=== PATIENT | male | born 1965 | race Caucasian/White ===

== ENCOUNTER 2017-08-28 19:08 | Emergency (ER) | payer OTHER, SELFPAY ==
[2017-08-28 19:09] VITALS: BP 116/75; PULSE 112; RESP 15; TEMP 37.2; BMI 29.8
--- NOTE | 2017-08-28 19:53 | RAD_ITS ---
STUDY: X-RAY CHEST REASON FOR EXAM: Male, 52 years old. Chest pain, fever TECHNIQUE: Single AP portable view of the chest. COMPARISON: None. FINDINGS: The lungs are clear and expanded. There is no demonstrated pleural abnormality. Normal size heart. Normal mediastinum and yelena. Normal visualized pulmonary arteries. Normal visualized aortic arch and descending thoracic aorta. Normal visualized thoracic spine. Normal visualized ribs, clavicles, and shoulders. There is no demonstrated abnormality of the visualized soft tissue structures of the upper abdomen. RAD/Chest 1 View (Portable) IMPRESSION: No acute cardiopulmonary disease. Electronically Signed: Suman Tyler DO at 20:19 EST , Service support ,
--- NOTE | 2017-08-28 19:53 | EKG12_ITS ---
Test Reason : CP Blood Pressure : / mmHG Vent. Rate : 098 BPM Atrial Rate : 098 BPM P-R Int : 160 ms QRS Dur : 112 ms QT Int : 334 ms P-R-T Axes : 070 066 054 degrees QTc Int : 426 ms Normal sinus rhythm Normal ECG Confirmed by TREVIN STANTON, CHARLES ([id number]), industrial editor MARINA FIGUEROA ([id number] on 08/30/2017 10:24:49 AM Referred By: CARLEEN NUR Confirmed By:CHARLES ZHONG MD
--- NOTE | 2017-08-28 19:59 | ED.DCSUM_ITS ---
- ER Visit Summary Date of Service: 08/28/17 Chief Complaint: Fever History of Present Illness: The patient is a 52 M presenting with fever ?2 days. He states his temperature max has been 103.7. he complains of shortness of breath and cough. He has myalgias. Also complains of substernal chest pain. He states the chest pain has been constant since 5 AM. He describes it as a diffuse body aching. Denies coronary artery disease risk factors. He has been taking Sudafed at home. He did not receive a flu shot this year. Physical Examination: Vitals are stable. Patient is afebrile. Alert no acute distress. HEENT exam is unremarkable. Neck is supple. Lungs are clear and equal bilaterally. Heart is regular rate and rhythm. Abdomen is soft nontender nondistended. Extremities are unremarkable. Skin is warm and dry. No focal neurologic deficit. Remainder of exam is unremarkable. Emergency Department Course and Treatment: Patient is given IV fluids, aspirin, Toradol. Chest x-ray shows no acute process. EKG is sinus rate of 98 with no acute ischemic changes. CBC, chemistries unremarkable. Troponin is negative. D-dimer is normal. Influenza A positive. Patient was ambulated in the ED and has pulse ox of 96% on room air. He is advised symptomatic treatment. Advised to follow-up with Dr. Carias communication arts lecturer for no doc. Advised return ED if worsening complaints. Disposition: Discharge home Impression: Influenza A This note was generated with Jumio dictation software. It may contain incorrect words, spelling, and punctuation that were not noted in review of the chart prior to signing ED Disposition - Plan for ED Patient: Disposition: Home or Assisted Living Chief Complaint: General Illness Instructions: ED Flu Referrals: Anthony Carias DO [STAFF PHYSICIAN] - Care Physician,No Primary [Primary Care Provider] -
[2017-08-28] MEDS: Aspirin 81 MG TAB.CHEW 324 MG PO (20:16)
[2017-08-28] MEDS: Ketorolac 30 MG/ML Syringe IV (20:16)
[2017-08-28] MEDS: 0.9% Normal Saline 1,000 ML 999 ML IV (20:16)
[2017-08-28 20:21] VITALS: O2SAT 94
[2017-08-28 20:21] LABS: Absolute Lymphocyte Count 1.39 X10^3/ul (0.83-4.51); Absolute Neutrophil Count 3.8 X10^3/uL (2.0-7.7); Basophil# 0.03 X10^3/uL; Basophil% 0.5 % (0-1); Eosinophil# 0.01 X10^3/uL; Eosinophils% 0.2 % (0-5); Hematocrit 39.1 % (40-54); Hemoglobin 12.9 g/dl (13.0-16.5); Lymphocyte # 1.39 X10^3/ul (4.0); Lymphocyte % 22.7 % (19-41); Mean Corpuscular Hgb 30.5 pg (27.0-32.0); Mean Corpuscular Volume 92.4 fL (80-94); Mean Platelet Vol. 9.1 fl (6.2-12.0); Monocyte# 0.85 X10^3/uL; Monocyte% 13.9 % (0-10); Neutrophil # 3.84 X10^3/uL (2.7-7.7); Neutrophil % 62.5 % (47-70); Platelet Count 156 K/mm3 (150-450); RBC Distribution Width CV 13.1 % (11.6-14.6); RBC Distribution Width SD 44.2 fl (35.1-43.9); Red Blood Count 4.23 M/mm3 (4.6-6.2); White Blood Count 6.1 K/mm3 (4.4-11.0)
[2017-08-28 20:22] LABS: POSITIVE COUNT NO; POSITIVE DIFFERENTIAL NO; POSITIVE MORPHOLOGY NO
[2017-08-28 20:34] LABS: D-Dimer Quantitative (DVT/PE) 0.27 FEU/ug/m (0.27-0.49)
--- NOTE | 2017-08-28 20:34 | ED.RN ---
notified Dr. Munoz of Flu A +
[2017-08-28 20:39] LABS: Anion Gap 8 (5-15); BUN 15 mg/dL (7-18); BUN/Creat Ratio 15.4 RATIO (10-20); Calcium,Total 8.3 mg/dL (8.5-10.1); Chloride 103 mmol/L (98-107); Creatinine, Serum 0.97 mg/dL (0.70-1.30); EST Glomerular Filtration Rate 86 mL/min (>60); Est Glom Filt Rate - Afr Amer 104 mL/min (>60); Estimated Creatinine Clearance 88.07 ml/min; Glucose 96 mg/dL (70-110); Potassium 3.7 mmol/L (3.5-5.1); Sodium Level 136 mmol/L (136-145)
[2017-08-28 21:17] VITALS: O2SAT 95
--- NOTE | 2017-08-28 21:27 | ED.DEP ---
ED Disposition - Plan for ED Patient: Chief Complaint: General Illness Instructions: ED Flu Referrals: Care Physician,No Primary [Primary Care Provider] - Anthony Carias DO [STAFF PHYSICIAN] -
[2017-08-28 22:03] VITALS: BP 134/87; PULSE 70; RESP 14; O2SAT 94
== END 2017-08-28 21:45 | disposition home or self-care (01) ==
PROVIDERS: Emergency Provider Emergency Medicine
DX: J11.1 Influenza due to unidentified influenza virus with other respiratory manifestations (principal); Z72.0 Tobacco use
CPT/HCPCS: 71045; 80048; 84484; 85025; 85379; 87804; 93005; 96374; 99284; J7030; A4216

== ENCOUNTER 2019-07-01 19:15 | Emergency (ER) | payer OTHER, SELFPAY ==
[2019-07-01 19:16] VITALS: BP 138/77; PULSE 102; RESP 24; TEMP 39.2; O2SAT 97; BMI 31.6
[2019-07-01 19:20] VITALS: BP 138/77; PULSE 102; RESP 24; TEMP 39.2; O2SAT 95; O2SAT 97
--- NOTE | 2019-07-01 19:25 | EKG12_ITS ---
Test Reason : SOB Blood Pressure : / mmHG Vent. Rate : 095 BPM Atrial Rate : 095 BPM P-R Int : 158 ms QRS Dur : 118 ms QT Int : 358 ms P-R-T Axes : 058 036 047 degrees QTc Int : 449 ms Normal sinus rhythm Low voltage QRS Cannot rule out Anterior infarct , age undetermined Abnormal ECG Confirmed by ANITHA STANTON, ANURAG ([id number]), newspaper editor MARINA FIGUEROA ([id number] on 07/02/2019 2:57:08 PM Referred By: GLENDA NUNEZ Confirmed By:ANURAG WELSH MD
[2019-07-01 19:30] VITALS: TEMP 39.2
[2019-07-01 19:39] VITALS: PULSE 108; RESP 16
[2019-07-01] MEDS: Albuterol 2.5 MG/3 ML VIAL.NEB. INHALATION (19:39)
[2019-07-01] MEDS: Ipratropium/Albuterol Sulfate 3 ML AMPUL.NEB INHALATION (19:39)
[2019-07-01] MEDS: 0.9% Normal Saline 1,000 ML 999 ML IV (19:57)
[2019-07-01] MEDS: MethylPREDNISolone 125 MG/2 ML Vial IV (19:58)
[2019-07-01] MEDS: Acetaminophen 500 MG Tablet 1000 MG PO (19:58)
--- NOTE | 2019-07-01 20:00 | RAD_ITS ---
HISTORY: Cough and SOB x 1 week. EXAM: XR Chest 2 Views: COMPARISON: August 28, 2017 FINDINGS: # of images incl. paperwork: 2 Lungs are clear. Heart is not enlarged. Severe degenerative disc disease with multilevel thoracic spine enthesophytes. Shoulder arthritis. Kyphoscoliosis. Pulmonary vascularity is distinct. No effusions. RAD/Chest PA and Lateral IMPRESSION: Normal. at 2036 Reported and signed by: Daniel Licea MD Electronically Signed: Daniel Licea MD at 20:35 EST Tel , Service support ,
[2019-07-01 20:04] LABS: International Normalized Ratio 1.2; Prothrombin Time (Protime)PT. 14.5 SECONDS (11.7-14.9)
[2019-07-01 20:05] LABS: Partial Thromboplast Time 35.4 Seconds (24.1-36.2)
[2019-07-01 20:08] LABS: Absolute Lymphocyte Count 1.51 X10^3/uL (0.83-4.51); Absolute Neutrophil Count 8.4 X10^3/uL (2.0-7.7); Basophil# 0.04 X10^3/uL; Basophil% 0.4 % (0-1); Eosinophils% 1.8 % (0-5); Hematocrit 35.9 % (40-54); Hemoglobin 12.1 g/dL (13.0-16.5); Lymphocyte # 1.51 X10^3/ul (4.0); Lymphocyte % 13.5 % (19-41); Mean Corp Hgb Conc 33.7 g/dL (32-36); Mean Corpuscular Hgb 31.3 pg (27.0-32.0); Mean Platelet Vol. 9.3 fl (6.2-12.0); Monocyte# 0.97 X10^3/uL; Monocyte% 8.7 % (0-10); NRBC Flagged by Analyzer 0 % (0-5); Neutrophil # 8.44 X10^3/uL (2.7-7.7); Neutrophil % 75.2 % (47-70); Platelet Count 254 K/mm3 (150-450); RBC Distribution Width CV 12.3 % (11.6-14.6); RBC Distribution Width SD 41.1 fl (35.1-43.9); Red Blood Count 3.86 M/mm3 (4.6-6.2); White Blood Count 11.2 K/mm3 (4.4-11.0)
[2019-07-01 20:18] LABS: Lactic Acid 1.2 mmol/L (0.4-2.0)
[2019-07-01 20:35] LABS: ALB/GLOB Ratio 0.9 RATIO (0.9-2.4); AST(SGOT) 16 U/L (15-37); Alanine Aminotransfer ALT/SGPT 23 U/L (16-61); Albumin, Serum 3.5 g/dL (3.2-5.0); Alkaline Phosphatase 75 U/L (45-117); Anion Gap 7 (5-15); BUN 10 mg/dL (7-18); BUN/Creat Ratio 10.9 RATIO (10-20); Calcium,Total 8.8 mg/dL (8.5-10.1); Chloride 103 mmol/L (98-107); Creatinine, Serum 0.92 mg/dL (0.70-1.30); EST Glomerular Filtration Rate 91 mL/min (>60); Est Glom Filt Rate - Afr Amer 110 mL/min (>60); Estimated Creatinine Clearance 94.78 ml/min; Globulin 3.9 g/dL (2.2-4.2); Glucose 98 mg/dL (74-106); Potassium 3.5 mmol/L (3.5-5.1); Protein, Total 7.4 g/dL (6.4-8.2); Sodium Level 138 mmol/L (136-145)
--- NOTE | 2019-07-01 20:44 | ED.VISSUMM ---
- ER Visit Summary Date of Service: 07/01/19 Chief Complaint: Shortness of breath and cough for a week. History of Present Illness: The patient is a 53 M no seen past medical history. He does smoke about half pack cigarettes a day. Patient states he has been coughing short of breath for about a week. At times clear phlegm is more recently become green. He is also developed a fever in the last day or so. He denies chest pain. He denies hemoptysis. He denies any leg pain or swelling. He did not get a flu shot this year. Physical Examination: Middle-aged male vital signs are stable he is febrile 102.6. He does not look septic or toxic. His pulse ox is 97% on room air no signs of hypoxia. HEENT exam unremarkable. Moist mucous membranes. Neck nontender no lymphadenopathy no meningismus. Heart mildly tachycardic rate about 102. No murmur. Lungs prolonged expiratory phase and expiratory wheezing throughout. Dry cough. Abdomen soft nontender normal bowel sounds no peritoneal signs. Extremities moves all 4. Calves nontender without edema or cords. Skin normal no rashes. Back nontender. Neurologically is awake and alert. Test Results: Chest x-ray 2 views AP lateral read both myself and radiologist shows no acute abnormality. No pneumonia. EKG sinus rhythm rate of 95 no acute signs of VT or ischemia. Unchanged from prior EKG from 2018. CBC normal white count 11. Hemoglobin 12. Chemistries normal normal creatinine gap. Liver enzymes normal.. Lactic acid normal 1.2. Influenza negative.. Emergency Department Course and Treatment: Patient presented with fever cough and tachycardia differential diagnosis included sepsis, pneumonia, viral bronchitis and influenza. He was treated with IV fluids, Solu-Medrol, p.o. Tylenol and aerosol treatments. Multiple repeat exams is progressively improving. His wheezing is resolved after the treatments and steroids. I discussed all test results of both he and his . He will be started on Zithromax here. He is received a dose of steroid. He will be placed on inhaler. Treatment Plan: Zithromax Z-SHIRLENE. Strengthening albuterol inhaler as needed. Prednisone 40 mg a day for 1 week. We referred to Dr. Gavin Laguna. Instructed to stop smoking. Disposition: Discharge Impression: Acute bronchitis with bronchospasm History of tobacco abuse. This note was generated with Ribbit dictation software. It may contain incorrect words, spelling, and punctuation that were not noted in review of the chart prior to signing ED Disposition - Plan for ED Patient: Referrals: Care Physician,No Primary [Primary Care Provider] -
--- NOTE | 2019-07-01 20:47 | ED.DEP ---
ED Disposition - Plan for ED Patient: Disposition: Home or Assisted Living Instructions: BRONCHITIS, Antiobiotic Treatment (Adult) Prescriptions: Prednisone [Deltasone] 40 mg PO DAILY 7 Days tab Prescription Printed Albuterol Sulfate [Proventil Hfa] 6.7 gm IH Q2H PRN PRN #1 [id number] PRN Reason: Wheezing Prescription Printed Azithromycin [Zithromax] 250 mg PO DAILY #4 tab Prescription Printed Referrals: Gavin Laguna MD [STAFF PHYSICIAN] - 3-5 Days Additional Instructions: Zithromax the antibiotic 1 pill/day starting tomorrow. Prednisone 40 mg a day for the next 7 days. Use inhaler as needed. Follow-up with not improving or return to the ER feeling worse. Absolutely stop smoking.
[2019-07-01] MEDS: Azithromycin 250 MG Tablet 500 MG PO (20:57)
[2019-07-01 21:04] VITALS: BP 134/79; PULSE 101; RESP 17; TEMP 37.7; O2SAT 96
== END 2019-07-01 21:06 | disposition home or self-care (01) ==
PROVIDERS: Emergency Provider Emergency Medicine
DX: J20.9 Acute bronchitis, unspecified (principal); F17.210 Nicotine dependence, cigarettes, uncomplicated
CPT/HCPCS: 71046; 80053; 83605; 85025; 85610; 85730; 87040; 87804; 93005; 94640; 96361; 96374; 99285; J7030; A4216